=== PATIENT | female | born 1985 | race Hispanic/Latino ===

== ENCOUNTER → 2018-09-14 15:07 | Outpatient (CLI) | payer BC, SELFPAY ==
[2018-09-19 13:40] LABS: HPV Reflexed? NOT INDICATED
== END ==
PROVIDERS: Visit Provider Obstetrics & Gynecology
DX: Z12.4 Encounter for screening for malignant neoplasm of cervix (principal)
CPT/HCPCS: 88175; G0145

== ENCOUNTER → 2019-01-17 14:26 | Outpatient (CLI) | payer BC, SELFPAY ==
[2017-09-17 11:56] VITALS: BMI 20.9
[2019-01-17 20:14] LABS: Chlamydia Trachomatis by PCR Negative (Negative); Neisserai gonorrhoeae by PCR Negative (Negative); Probe Check PASS; Sample Adequacy Control PASS; Specimen Processing Control PASS
== END ==
LOC: LABSPEC 14:26
PROVIDERS: Visit Provider Obstetrics & Gynecology
DX: Z11.3 Encounter for screening for infections with a predominantly sexual mode of transmission (principal)
CPT/HCPCS: 87491; 87591

== ENCOUNTER → 2019-02-03 10:32 | Outpatient (CLI) | payer BC, SELFPAY ==
[2017-09-17 11:56] VITALS: BMI 20.9
[2019-02-03 10:57] LABS: Color, Urine Yellow (Yellow); Glucose, Dipstick Normal (Normal); Ketone-Dipstick Negative (Negative); Leukocyte Esterase-Dipstick 25 /ul (Negative); Nitrite-Dipstick Negative (Negative); Occult Blood-Urine Negative /ul (Negative); Protein-Dipstick Negative (Negative); Urine Bilirubin Dipstick Negative (Negative); Urine Clarity Clear (Clear); Urine Urobilinogen Normal (Normal)
[2019-02-03 10:59] LABS: Absolute Lymphocyte Count 2.79 X10^3/ul (0.83-4.51); Absolute Neutrophil Count 7.3 X10^3/uL (2.0-7.7); Basophil# 0.02 X10^3/uL; Basophil% 0.2 % (0-1); Eosinophil# 0.09 X10^3/uL; Eosinophils% 0.8 % (0-5); Hematocrit 44.4 % (37-47); Hemoglobin 14.7 g/dl (12.0-15.0); Lymphocyte # 2.79 X10^3/ul (4.0); Lymphocyte % 25.6 % (19-41); Mean Corp Hgb Conc 33.1 g/gl (32-36); Mean Corpuscular Hgb 29.8 pg (27.0-32.0); Mean Corpuscular Volume 89.9 fL (81-99); Mean Platelet Vol. 9.3 fl (6.2-12.0); Monocyte# 0.66 X10^3/uL; Monocyte% 6.1 % (0-10); Neutrophil # 7.32 X10^3/uL (2.7-7.7); Neutrophil % 67.1 % (47-70); Platelet Count 260 K/mm3 (150-450); RBC Distribution Width CV 13.9 % (11.6-14.6); RBC Distribution Width SD 45.4 fl (35.1-43.9); Red Blood Count 4.94 M/mm3 (4.2-5.4); White Blood Count 10.9 K/mm3 (4.4-11.0)
[2019-02-03 11:00] LABS: POSITIVE COUNT NO; POSITIVE DIFFERENTIAL NO; POSITIVE MORPHOLOGY NO
[2019-02-03 11:40] LABS: Thyroid Stim Hormone (TSH) 0.18 uIU/mL (0.358-3.74)
[2019-02-03 12:21] LABS: HIV - WCH Non-Reactive (Nonreactive); Rubella IgG 483.5 IU/mL
[2019-02-03 14:11] LABS: Free T3 2.8 pg/mL (2.18-3.98); T4 Free Direct 1.22 ng/dL (0.76-1.46)
[2019-02-04 17:16] LABS: HEPATITIS B SURFACE AG Negative (Negative); Hep C Antibodies 0.1 s/co ratio (0.0-0.9)
[2019-02-10 01:29] LABS: Prenatal RPR NONREACTIVE (NONREACTIVE)
== END ==
LOC: WOBLAB 10:32
PROVIDERS: Visit Provider Obstetrics & Gynecology
DX: Z34.81 Encounter for supervision of other normal pregnancy, first trimester (principal)
CPT/HCPCS: 36415; 81002; 84439; 84443; 84481; 85025; 86703; 86762; 86803; 87340

== ENCOUNTER → 2019-06-13 | Outpatient (CLI) | payer BC, SELFPAY ==
[2017-09-17 11:56] VITALS: BMI 20.9
[2019-06-13 11:39] LABS: Hematocrit 37.7 % (37-47); Hemoglobin 12.4 g/dL (12.0-15.0); Mean Corp Hgb Conc 32.9 g/dL (32-36); Mean Corpuscular Volume 97.4 fL (81-99); Mean Platelet Vol. 8.8 fl (6.2-12.0); Platelet Count 198 K/mm3 (150-450); RBC Distribution Width CV 13.4 % (11.6-14.6); RBC Distribution Width SD 48.1 fl (35.1-43.9); Red Blood Count 3.87 M/mm3 (4.2-5.4); White Blood Count 9.8 K/mm3 (4.4-11.0)
[2019-06-13 12:21] LABS: Glucose Challenge Gest 1H 50g 82 mg/dL (70-140)
== END | disposition home or self-care (01) ==
PROVIDERS: Visit Provider Obstetrics & Gynecology
DX: Z34.83 Encounter for supervision of other normal pregnancy, third trimester (principal)
CPT/HCPCS: 36415; 82950; 85027; 86850

== ENCOUNTER → 2019-08-15 17:31 | Outpatient (CLI) | payer BC, SELFPAY ==
[2017-09-17 11:56] VITALS: BMI 20.9
== END ==
LOC: LABSPEC 17:32
PROVIDERS: Visit Provider Obstetrics & Gynecology
DX: Z36.85 Encounter for antenatal screening for Streptococcus B (principal)
CPT/HCPCS: 87081

== ENCOUNTER 2019-08-30 05:30 | Inpatient (IN) | payer BC, SELFPAY ==
[2017-09-17 11:56] VITALS: BMI 20.9
[2019-08-30 06:17] VITALS: BMI 27.7
[2019-08-30] MEDS: Lactated Ringers 1,000 ML 50 ML IV (06:20)
[2019-08-30] MEDS: Lactated Ringers 500 ML 999 ML IV ×3 (06:25→10:39)
[2019-08-30 06:47] LABS: Absolute Lymphocyte Count 1.81 X10^3/uL (0.83-4.51); Basophil# 0.03 X10^3/uL; Basophil% 0.2 % (0-1); Eosinophil# 0.11 X10^3/uL; Eosinophils% 0.9 % (0-5); Hematocrit 39.8 % (37-47); Hemoglobin 13.2 g/dL (12.0-15.0); Lymphocyte # 1.81 X10^3/ul (4.0); Mean Corp Hgb Conc 33.2 g/dL (32-36); Mean Corpuscular Hgb 30.9 pg (27.0-32.0); Mean Corpuscular Volume 93.2 fL (81-99); Mean Platelet Vol. 9.1 fl (6.2-12.0); Monocyte# 0.93 X10^3/uL; Monocyte% 7.7 % (0-10); NRBC Flagged by Analyzer 0 % (0-5); Neutrophil # 9.04 X10^3/uL (2.7-7.7); Neutrophil % 75.2 % (47-70); Platelet Count 178 K/mm3 (150-450); RBC Distribution Width CV 14.6 % (11.6-14.6); RBC Distribution Width SD 49.5 fl (35.1-43.9); Red Blood Count 4.27 M/mm3 (4.2-5.4)
--- NOTE | 2019-08-30 06:58 | PCM.HPOB.BLA ---
History and Physical Date of Admission: 08/30/19 OB HISTORY AND PHYSICAL EXAMINATION History of this : 34 yo female Ab0 with EDC 09/03/2019 by Ultrasound, presents to Labor and Delivery at 39 4/7 wk EGA with painful UCs. planned. care remarkable for - O negative, Rubella immune. GBS neg. 1.) renal pelvis dilated to 6 mm. 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 Pertinent Past Medical History: None. Allergies: No Known Drug Allergies Medications: During - + DHA 28 mg iron- 975 mcg-200 mg combo pack Review of Systems: Non-contributory PHYSICAL EXAMINATION General Appearance: 34 yo female very uncomfortable with UCs. Vital Signs: AF, VSS Breasts: deferred Abdomen: gravid Pelvis: adequate Cervix: 6 cm at admission ? SROM (inc fluid at perineum after a contraction, clear) at approx 0645 Presentation: cephalic Fetus: Size: AGA Movement: present Heart: 140-150s avg variability. Accels. UCs q 4-7 mins Impression /Plan: Intrauterine . Preparations in progress for delivery. Admit for labor. Monitoring. Watch progress, descent and tolerance of labor. Epidural UMU.
[2019-08-30] MEDS: fentaNYL-bupivacaine (epidural) 100 ML BAG EPIDURAL (07:49)
[2019-08-30] MEDS: Oxytocin 30 units/NS 500 ml 30 UNITS/500 ML IV.SOLN 334 UNITS IV (11:28)
[2019-08-30] MEDS: Methylergonovine 0.2 MG/ML Ampul IM (11:35)
--- NOTE | 2019-08-30 12:24 | PCM.OPRPT ---
Vaginal Delivery Maternal Presentation: Active Labor 39 4/7 wk EGA painful UCs Amniotic Membrane Rupture Type: Spontaneous Amniotic Fluid Description: Clear Final MARI: 09/02/19 Gestational age: 39 Weeks and 4 Days Date of Procedure: 08/30/19 Pre-Operative Diagnosis: 30 4/7 wk labor. Post-Operative Diagnosis: Same Surgery/ Procedure Performed: Spontaneous Vaginal Delivery Anesthesiologist: Marvin Shankar Type of Anesthesia: Epidural Description of Procedure: of a alcantar viable female over intact perineum to lacerations. Head delivered PREETHI. OP and nares bulb suctioned on perineum. Nuchal cord reduced times two Shoulders delivered easily. to maternal abdomen . Delayed cord clamping then cord clamped times two and cut. Routine cord blood collected for typing. Placenta delivered by spont expulsion, expression. 3V cord normal appearing and intact with trailing membranes. Continued brisk bleeding. Inc rate of Pitocin IV. Bimanual massage. Methergine given IM L thigh. PP exam; Posterior vaginal laceration repaired to hemostatic, intact with 3-0 Vicryl. Continued brisk bleeding. Lacerations/abrasions then noted at anterior vaginal wall at introitus near bladder reflection. Oversewn and reapproximated with 3-0 Vicryl Hemostasis noted. EBL 600 cc Pt and tolerated delivery well. Will check CBC in recovery and PPD#1 Presentation: Vertex, PREETHI Placental Delivery Description: Spontaneous, Expressed Placenta Disposition: [facility] Cord Vessel Description: 3 Vessels Nuchal Cord Compression: Without compression Cord Entanglement: None Drain: Hernandez to straight drain Estimated Blood Loss: 600 Infant A gender: Female (1 minute): 8 (5 minute): 9 Episiotomy Description: None Laceration: Vaginal Extension/lac, 1st degree - brisk bleeding from R anterior vaginal laceration. Laceration at posterior introitus also bleeding. Both repaired to hemostatic, intact. Medications given after delivery: IV Pitocin, IM Methergin Complications: None
[2019-08-30 15:33] LABS: Absolute Lymphocyte Count 1.82 X10^3/uL (0.83-4.51); Absolute Neutrophil Count 12.5 X10^3/uL (2.0-7.7); Basophil# 0.02 X10^3/uL; Basophil% 0.1 % (0-1); Eosinophil# 0.04 X10^3/uL; Eosinophils% 0.3 % (0-5); Hematocrit 35.3 % (37-47); Hemoglobin 11.7 g/dL (12.0-15.0); Lymphocyte # 1.82 X10^3/ul (4.0); Lymphocyte % 11.8 % (19-41); Mean Corp Hgb Conc 33.1 g/dL (32-36); Mean Corpuscular Hgb 30.7 pg (27.0-32.0); Mean Corpuscular Volume 92.7 fL (81-99); Monocyte# 0.96 X10^3/uL; Monocyte% 6.2 % (0-10); NRBC Flagged by Analyzer 0 % (0-5); Neutrophil # 12.48 X10^3/uL (2.7-7.7); Platelet Count 164 K/mm3 (150-450); RBC Distribution Width CV 14.6 % (11.6-14.6); RBC Distribution Width SD 49.7 fl (35.1-43.9); Red Blood Count 3.81 M/mm3 (4.2-5.4); White Blood Count 15.4 K/mm3 (4.4-11.0)
[2019-08-30] MEDS: Naproxen 250 MG Tablet 500 MG PO (17:10)
[2019-08-30 17:11] VITALS: BP 100/48; PULSE 98; TEMP 36.4
--- NOTE | 2019-08-30 19:46 | DCINST_ITS ---
Discharge Diet: No Restrictions Discharge Activity: May Shower, May Take a Tub Bath May resume sexual activity in: 4-6 weeks Additional Activity Instructions:: Nothing in the vagina for 4-6 weeks. You may return to work/school in 6 weeks. Additional Instructions: If you experience any of the following, contact your healthcare provider. * Bleeding that soaks a pad every hour for 2 hours * Fever 100.4 or higher * Unrelieved incision or abdominal pain * Swelling, redness, discharge or bleeding from your incision or episiotomy site * Your incision begins to separate * Problems urinating (including inability to urinate or burning while u rinating). * Visual changes * Severe headache * Flu-like symptoms * Pain or redness in one of both of your breasts * Pain, warmth, tenderness or swelling in your legs, especially the calf area * Frequent nausea and vomiting * Symptoms of depression or anxiety If you experience any of the following, call 911 or go to the nearest Emergency Room. * Chest pain * Problems breathing * Seizure activity * Partial or complete paralysis of a body part, slurred speech, weakness or drooping of the face, or a sudden inability to walk or hold your balance Allergies/Adverse Reactions: Allergies No Known Allergies Allergy (Verified 09/17/17 12:30) Medications to take at Discharge Vits [Prenatabs FA] 1 tab PO DAILY 08/30/19 Please Follow Up With: Veronica Adhikari MD - [phone] When: Call to make an appointment with your doctor in 6 weeks. Primary Care Physician: Care Physician,No Primary [Primary Care Provider] - Test Results: Test results from this visit will be discussed in further detail at your follow- up appointment, if applicable.
--- NOTE | 2019-08-30 19:46 | PCM.DCVAG ---
Discharge Diet: No Restrictions Discharge Activity: May Shower, May Take a Tub Bath May resume sexual activity in: 4-6 weeks Additional Activity Instructions:: Nothing in the vagina for 4-6 weeks. You may return to work/school in 6 weeks. Additional Instructions: If you experience any of the following, contact your healthcare provider. Bleeding that soaks a pad every hour for 2 hours Fever 100.4 or higher Unrelieved incision or abdominal pain Swelling, redness, discharge or bleeding from your incision or episiotomy site Your incision begins to separate Problems urinating (including inability to urinate or burning while urinating). Visual changes Severe headache Flu-like symptoms Pain or redness in one of both of your breasts Pain, warmth, tenderness or swelling in your legs, especially the calf area Frequent nausea and vomiting Symptoms of depression or anxiety If you experience any of the following, call 911 or go to the nearest Emergency Room. Chest pain Problems breathing Seizure activity Partial or complete paralysis of a body part, slurred speech, weakness or drooping of the face, or a sudden inability to walk or hold your balance Allergies/Adverse Reactions: Allergies No Known Allergies Allergy (Verified 09/17/17 12:30) Medications to take at Discharge Vits [Prenatabs FA] 1 tab PO DAILY 08/30/19 Please Follow Up With: Veronica Adhikari MD - [phone] When: Call to make an appointment with your doctor in 6 weeks. Primary Care Physician: Care Physician,No Primary [Primary Care Provider] - Test Results: Test results from this visit will be discussed in further detail at your follow-up appointment, if applicable.
[2019-08-30 20:20] VITALS: BP 100/55; PULSE 77; RESP 18; TEMP 37.2
--- NOTE | 2019-08-30 22:08 | NURSING ---
this RN to assume care of pt at this time. report received from fadi GONZALES.
[2019-08-30 23:18] VITALS: BP 96/55; PULSE 78; RESP 16; TEMP 36.9
[2019-08-31] MEDS: Acetaminophen 500 MG Tablet 1000 MG PO (01:22)
[2019-08-31 04:36] VITALS: BP 87/42; PULSE 70; RESP 16; TEMP 36.8
--- NOTE | 2019-08-31 04:50 | NURSING ---
most recent BP low. pt denies feeling dizzy or nauseated. asymptomatic. 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 will obtain another BP, if necessary. pt trends low BP prior to this one.
[2019-08-31 05:10] LABS: Hematocrit 33.5 % (37-47); Hemoglobin 10.9 g/dL (12.0-15.0); Mean Corp Hgb Conc 32.5 g/dL (32-36); Mean Corpuscular Hgb 30.5 pg (27.0-32.0); Mean Corpuscular Volume 93.8 fL (81-99); Mean Platelet Vol. 9.1 fl (6.2-12.0); Platelet Count 161 K/mm3 (150-450); RBC Distribution Width CV 14.6 % (11.6-14.6); RBC Distribution Width SD 50.1 fl (35.1-43.9); Red Blood Count 3.57 M/mm3 (4.2-5.4); White Blood Count 11.1 K/mm3 (4.4-11.0)
--- NOTE | 2019-08-31 06:45 | PN.OBGYN_ITS ---
Subjective: PPD#1 CC of cramping -- states some pain with sitting Asking about pain meds. Nursing baby well. - Physical Exam General: Alert, Oriented x3, Cooperative, No apparent distress HEENT: Atraumatic, EOMI Neck: Supple Neurological: Cranial nerves II-XII grossly intact Psych/Mental Status: Normal Affect Vital Signs Temp Pulse Resp BP 98.2 F 70 16 87/42 L 08/31/19 04:36 08/31/19 04:36 08/31/19 04:36 08/31/19 04:36 Oxygen Delivery Method Room Air Weight: 71 kg Body Mass Index (BMI) 27.7 Intake and Output for Last 24 Hours 08/29/19 08/30/19 08/31/19 23:59 23:59 23:59 Intake Total 2910.84 / 2910.84 Output Total 1500 / 1500 Balance 1410.84 / 1410.84 Laboratory Tests Past 24 Hrs 08/30/19 08/30/19 08/30/19 06:20 06:48 15:20 WBC 12.0 H 15.4 H RBC 4.27 3.81 L Hgb 13.2 11.7 L Hct 39.8 35.3 L MCV 93.2 92.7 MCH 30.9 30.7 MCHC 33.2 33.1 RDW Std Deviation 49.5 H 49.7 H RDW Coeff of Ginny 14.6 14.6 Plt Count 178 164 MPV 9.1 9.0 Immature Gran % (Auto) 1.000 H 0.600 Neut % (Auto) 75.2 H 81.0 H Lymph % (Auto) 15.0 L 11.8 L [place] % (Auto) 7.7 6.2 Eos % (Auto) 0.9 0.3 Baso % (Auto) 0.2 0.1 Absolute Neuts (auto) 9.0 H 12.5 H Absolute Lymphs (auto) 1.81 1.82 Nucleated RBC % 0 0 Blood Type O NEGATIVE Antibody Screen NEGATIVE 08/31/19 04:41 WBC 11.1 H RBC 3.57 L Hgb 10.9 L Hct 33.5 L MCV 93.8 MCH 30.5 MCHC 32.5 RDW Std Deviation 50.1 H RDW Coeff of Ginny 14.6 Plt Count 161 MPV 9.1 Immature Gran % (Auto) Neut % (Auto) Lymph % (Auto) [place] % (Auto) Eos % (Auto) Baso % (Auto) Absolute Neuts (auto) Absolute Lymphs (auto) Nucleated RBC % Blood Type Antibody Screen Medical Necessity - Tobacco Use Smoking Status: Never smoker Assessment/Plan All Active Problems Non-reassuring heart rate, delivered, current hospitalization (Acute) PPD#1 Stable pp. Continue care. Dermoplast prn to irritated skin , lacerations repaired. Education today. Thai speaking.
[2019-08-31 08:30] VITALS: BP 88/53; PULSE 71; RESP 16; TEMP 36.5; O2SAT 99
[2019-08-31] MEDS: Ferrous Gluconate 324 MG Tablet PO (09:09)
[2019-08-31] MEDS: Prenatal Vits Tablet 1 TABLET PO (09:09)
[2019-08-31] MEDS: Naproxen 250 MG Tablet 500 MG PO (09:09)
[2019-08-31 12:41] VITALS: BP 85/49; PULSE 96; RESP 16; TEMP 36.6; O2SAT 99
--- NOTE | 2019-08-31 12:43 | NURSING ---
Patient states she asymptomatic with blood pressure. No complaints of dizziness, lightheadedness, or feeling any differently.
[2019-08-31 20:03] VITALS: BP 83/46; PULSE 79; RESP 16; TEMP 36.8
--- NOTE | 2019-08-31 20:05 | NURSING ---
pt denies feeling symptomatic of low BP. no dizziness or lightheadedness noted. will continue to monitor.
[2019-09-01 02:20] VITALS: BP 90/49; PULSE 76; RESP 16; TEMP 36.6
--- NOTE | 2019-09-01 07:20 | PCM.PN.OB ---
Subjective: PPD#2 some discomfort at her lacerations. Dermoplast spray helping. Painful nipples and has triple nipple cream. Wanted to go home yesterday and dischg orders called for by RN, but remains inpt today. Plans dischg today. Plans to have nurse order breakfast for her. (Lithuanian primarily) - Physical Exam General: Alert, Oriented x3, Cooperative, No apparent distress HEENT: Atraumatic, EOMI Neck: Supple Psych/Mental Status: Normal Affect Vital Signs Temp Pulse Resp BP Pulse Ox 97.9 F 76 16 90/49 L 99 09/01/19 02:20 09/01/19 02:20 09/01/19 02:20 09/01/19 02:20 08/31/19 12:41 Oxygen Delivery Method Room Air Weight: 71 kg Body Mass Index (BMI) 27.7 Intake and Output for Last 24 Hours 08/30/19 08/31/19 09/01/19 23:59 23:59 23:59 Intake Total 2910.84 / 2910.84 1000 / 1000 Output Total 1500 / 1500 Balance 1410.84 / 1410.84 1000 / 1000 Medical Necessity - Tobacco Use Smoking Status: Never smoker Assessment/Plan All Active Problems Non-reassuring heart rate, delivered, current hospitalization (Acute) PPD#2 Stable pp. dischg home today.
[2019-09-01] MEDS: Ferrous Gluconate 324 MG Tablet PO (08:28)
[2019-09-01 08:30] VITALS: BP 95/51; PULSE 78; RESP 18; TEMP 36.9; O2SAT 97
[2019-09-01] MEDS: Prenatal Vits Tablet 1 TABLET PO (10:59)
[2019-09-01] MEDS: Senna/Docusate Sodium 1 Tablet PO (10:59)
== END 2019-09-01 12:30 | disposition home or self-care (01) | DRG 807 ==
PROVIDERS: Advanced Practice Midwife; Admitting Provider Obstetrics & Gynecology; Referring Provider Obstetrics & Gynecology; Visit Provider Obstetrics & Gynecology
DX: O76 Abnormality in fetal heart rate and rhythm complicating labor and delivery (principal); Z37.0 Single live birth; O34.219 Maternal care for unspecified type scar from previous cesarean delivery; O69.81X0 Labor and delivery complicated by cord around neck, without compression, not applicable or unspecified; O70.0 First degree perineal laceration during delivery; Z3A.39 39 weeks gestation of pregnancy
CPT/HCPCS: 59025; 59050; 85025; 85027; 86850; 86900; 86901; 99218; J7120; G0378